=== PATIENT | male | born 1940 | race Caucasian/White ===

== ENCOUNTER 2017-07-19 22:55 | Emergency (ER) | payer OTHER ==
[~2017-07-19] VITALS: Ht 175.3 cm; Wt 86.4 kg
[2017-07-20 03:30] VITALS: BP 145/69
== END 2017-07-20 03:30 ==
LOC: EME 22:55
DX: F32.9 Major depressive disorder, single episode, unspecified (principal); F03.90 Unspecified dementia, unspecified severity, without behavioral disturbance, psychotic disturbance, mood disturbance, and anxiety; Z00.8 Encounter for other general examination; I10 Essential (primary) hypertension; K21.9 Gastro-esophageal reflux disease without esophagitis; E11.9 Type 2 diabetes mellitus without complications; E78.5 Hyperlipidemia, unspecified; H91.90 Unspecified hearing loss, unspecified ear; F43.20 Adjustment disorder, unspecified; Z91.5 Personal history of self-harm; Z86.79 Personal history of other diseases of the circulatory system; Z86.73 Personal history of transient ischemic attack (TIA), and cerebral infarction without residual deficits; Z85.9 Personal history of malignant neoplasm, unspecified
CPT/HCPCS: 81003; 90839

== ENCOUNTER 2017-07-20 16:53 | Emergency (ER) | payer OTHER ==
[~2017-07-20] VITALS: Ht 172.7 cm; Wt 80.6 kg
[2017-07-20 17:39] LABS: HEMATOCRIT 32.9 % (38.0-50.0); HEMOGLOBIN 10.7 G/DL (12.5-16.6); MCHC 32.5 G/DL (30.0-36.0); MCV 86.1 FL (86-99); PLATELET COUNT 310 K/uL (156-360); RBC DIS.WIDTH-CV 14.5 % (11.8-14.6); RBC DIS.WIDTH-SD 45.2 % (39-53); RED BLOOD COUNT 3.82 M/uL (4.00-5.50); WHITE BLOOD COUNT 9.1 K/uL (4.1-10.2)
[2017-07-20 18:01] LABS: ALBUMIN 3.3 g/dL (3.2-4.8); CHLORIDE 101 mEq/L (99-109); POTASSIUM 4.2 mEq/L (3.7-5.4); SODIUM 139 mEq/L (136-147)
[2017-07-20 18:04] LABS: GLUCOSE 109 mg/dL (70-99)
[2017-07-20 18:06] LABS: TOTAL BILIRUBIN 0.6 mg/dL (0.0-1.0)
[2017-07-20 18:07] LABS: ALKALINE PHOSPHATASE 104 IU/L (3-129); SERUM ETHYL ALCOHOL < 10 mg/dL
[2017-07-20 18:08] LABS: CREATININE 1.1 mg/dL (0.6-1.3); GFR ESTIMATE (CALCULATED) > 59 mL/min/ (58.99-99999)
[2017-07-20 18:09] LABS: AST (GOT) 15 IU/L (2-34); UREA NITROGEN (BUN) 22 mg/dL (9-23)
[2017-07-20 18:10] LABS: ALT (GPT) 14 IU/L (3-49)
[2017-07-20 22:32] VITALS: BP 137/79
== END 2017-07-20 22:39 ==
LOC: EME 16:53
PROVIDERS: Emergency Medicine
DX: F03.90 Unspecified dementia, unspecified severity, without behavioral disturbance, psychotic disturbance, mood disturbance, and anxiety (principal); H91.90 Unspecified hearing loss, unspecified ear; Z86.73 Personal history of transient ischemic attack (TIA), and cerebral infarction without residual deficits; I10 Essential (primary) hypertension; E78.5 Hyperlipidemia, unspecified; E11.9 Type 2 diabetes mellitus without complications; K21.9 Gastro-esophageal reflux disease without esophagitis; I70.90 Unspecified atherosclerosis; F43.20 Adjustment disorder, unspecified; F32.9 Major depressive disorder, single episode, unspecified; Z85.9 Personal history of malignant neoplasm, unspecified
CPT/HCPCS: 80053; 81003; 85027; 99281; 99285; G0480